=== PATIENT | male | born 1985 | race Caucasian/White ===

== ENCOUNTER 2022-04-03 12:26 | Emergency (ER) | payer OTHER, SELFPAY ==
--- NOTE | 2022-04-03 12:33 | ED_ITS ---
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 No significant medical problems no recent illnesses. Onset (ago): minute(s) Location: left and upper extremity (Index finger) Treatments prior to arrival: none PFS ED PFSH: Medical History (Updated 04/03/22 @ 12:38 by José Jarrett DO) No pertinent past medical history Surgical History (Updated 04/03/22 @ 12:35 by José Jarrett DO) No pertinent past surgical history Physical Exam Narrative: EXAM NARRATIVE: Limited physical exam. Needlestick injury to the left index finger just distal to the proximal interphalangeal joint no active bleeding MDM - General Adult Medical Decision Making Discussed HIV prophylaxis. Patient well acquainted with medications and risks. He declines at this time pending results from source patient testing. Staff is contacting the patient's guardian to get permission for HIV and hepatitis panel testing. Watch for signs of infection. Discharge Plan Discharge Patient Disposition: Home Clinical Impression: Needlestick injury accident Condition: Stable Discharge Orders: Discharge ED (Routine); Ordered 04/03/22 Ordered By: José Jarrett Referrals: [facility], [Primary Care Provider] - Patient Instructions: Opioid Safety Activity Restrictions/Additional Instructions: Return if there are signs of infection at the site of the needlestick injury. Follow-up with [facility]. Coding Level of Care Code ED Geospatial Technician for Sebas Brewster
[2022-04-03 12:59] LABS: Basophils # 0.1 10^3/uL (0.0-0.1); Basophils % 0.6 %; Eosinophils # 0.1 10^3/uL (0.0-0.8); Eosinophils % 0.7 %; Hematocrit 47.9 % (42.0-52.0); Hemoglobin 15.8 g/dL (11.7-16.6); Lymphocytes # 2.1 10^3/uL (0.8-4.8); Mean Corpuscular Volume 87.9 fl (80-94); Mean Platelet Volume 10.6 fL (7.4-10.4); Monocytes # 0.8 10^3/uL (0.2-0.9); Monocytes % 9.8 %; Neutrophils # 5.54 10^3/uL (1.8-7.7); Neutrophils % 64.7 %; Nucleated Red Blood Cells % 0 %; Platelet Count 210 10^3/cmm (130-400); Red Blood Count 5.45 10^6/uL (4.1-5.3); Red Cell Distribution Width 12.6 % (12.1-15.1); White Blood Count 8.6 10^3/uL (4.0-10.0)
[2022-04-03 13:23] LABS: Alanine Aminotransferase 24 U/L (0-41); Albumin Level 4.8 g/dL (3.5-5.2); Alkaline Phosphatase 90 U/L (40-130); Anion Gap 16.8 (5-19); Aspartate Amino Transferase 30 U/L (0-40); Blood Urea Nitrogen 18 mg/dL (6-20); Calcium 9.1 mg/dL (8.5-10.5); Carbon Dioxide 25 mmol/L (22-29); Chloride 102 mmol/L (98-107); Globulin 2.5 g/dL (1.3-4.6); Glomerular Filtration Rate 109.4 mL/min (90-130); Glucose 81 mg/dL (65-115); Osmolality Calculated 291 mOsm/kg (285-295); Potassium 3.8 mmol/L (3.5-5.1); Sodium 140 mmol/L (136-145); Total Bilirubin 0.6 mg/dL (0.15-1.2); Total Protein 7.3 g/dL (6.6-8.7)
[2022-04-03 13:32] LABS: Hepatitis A Antibody IgM Non-Reactive (Nonreactive); Hepatitis B Core IgM Non-Reactive (Nonreactive); Hepatitis B Surface Antigen Non-Reactive (Nonreactive); Hepatitis C Virus Antibody Non-Reactive (Nonreactive)
[2022-04-03 13:46] LABS: HIV 1 & 2 Antibody Non-Reactive (Non-Reactiv); HIV 1 & 2 Antigen Non-Reactive (Non-Reactiv)
== END 2022-04-03 13:14 | disposition home or self-care (01) ==
LOC: ER 04-04 12:33
PROVIDERS: Emergency Provider Family Medicine
DX: Z77.21 Contact with and (suspected) exposure to potentially hazardous body fluids (principal); W46.0XXA Contact with hypodermic needle, initial encounter; Y99.0 Civilian activity done for income or pay
CPT/HCPCS: 80053; 80074; 85025; 87806; 99283

== ENCOUNTER → 2022-06-04 10:03 | Outpatient (BNVA) | payer OTHER, SELFPAY | PROVIDERS: Visit Provider Urology | DX: R31.0 Gross hematuria (principal) | CPT/HCPCS: 81003; 87086; 88112 ==

== ENCOUNTER 2022-06-08 09:35 | Outpatient (CLI) | payer OTHER, SELFPAY ==
--- NOTE | 2022-06-08 09:41 | CT_ITS ---
WS: [id number] CT ABDOMEN PELVIS TECHNIQUE: Noncontrast CT of the abdomen and contrast-enhanced CT of the abdomen and pelvis with khloe nal and sagittal reformatted images. CLINICAL INFORMATION: Gross Hematuria COMPARISON: Ultrasound May 10, 2022 DLP: 3556.[address] scans at [facility] use at least one of these dose optimization techniques: automated e xposure control; mA and/or kV adjustment per patient size (includes targeted exams where dose is matc hed to clinical indication); or iterative reconstruction. FINDINGS: 4.0mm calculus at the distal LEFT UVJ. No significant hydronephrosis. Mild LEFT ureterectasis. Normal renal parenchymal enhancement bilaterally. Normal filling of the LEFT ureter. Normal RIGHT ureteral excretion. Normal filling of the bladder. Lung bases are well aerated. Normal liver. Normal portal vein and splenic vein. Normal gallbladder. N ormal spleen. Tiny esophageal hiatal hernia. Normal pancreatic parenchymal enhancement. Adrenal glands are normal. Normal caliber abdominal aorta. Slightly prominent prostate measuring 4.3 CM. A few sigmoid diverticuli. No evidence of high-grade sm all or large bowel obstruction. Normal appendix in the RIGHT lower quadrant. Tiny fat-containing umbilical hernia. Disc space narrowi ng L5-S1. CT/CT abdomen pelvis wo/w [id number] IMPRESSION: 1. Obstructing 4 mm calculus at the distal LEFT UVJ. Mild LEFT ureterectasis. No significant hydronephrosis. 2. No obstructing RIGHT renal or ureteral calculi. 3. Normal renal parenchymal enhancement and excretion on the delayed images. 4. Small esophageal hiatal hernia. 5. No other acute findings.
[2022-06-08] MEDS: iohexol 350 mg/mL 100 mL Btl IV (09:59)
== END 2022-06-08 09:36 | disposition home or self-care (01) ==
LOC: RAD 09:36
PROVIDERS: PCP Family Medicine; Visit Provider Family Medicine
DX: N20.1 Calculus of ureter (principal)
CPT/HCPCS: 74178